=== PATIENT | male | born 1960 | race African-American/Black ===

== ENCOUNTER 2021-08-14 07:49 | Inpatient (IN) ==
[2021-08-14] MEDS ORDERED: SODIUM CHLORIDE 0.9% 1,000 ML IV STA ×2 (08:00→09:25)
[2021-08-14] MEDS ORDERED: NOREPINEPHRINE 4 MG/4 ML VIAL IV ONE ×3 (08:14→12:48)
[2021-08-14] MEDS: NOREPINEPHRINE 8 MG in SODIUM CHLORIDE 0.9% 242 ML IV PRN ×5 (08:18→14:46)
[2021-08-14] MEDS ORDERED: ROCURONIUM 100 MG/10 ML VIAL IV ONE (08:27)
[2021-08-14] MEDS ORDERED: ETOMIDATE 20 MG/10 ML VIAL IV ONE (08:27)
[2021-08-14 08:28] LABS: Basophils % 0.1 % (0.0-0.8); Eosinophils % 0.1 % (0.00-10.9); Hematocrit 29.5 VOL% (42.0-52.0); Immature Granulocytes % 5.6 %; Immature Granulocytes Absolute 0.71 #; Lymphocytes # 0.6 10*3/uL (1.4-4.0); Lymphocytes % 4.4 % (21.2-54.2); Mean Corpuscular HGB Conc 26.4 GM/DL (32-36); Mean Corpuscular Volume 98.7 FL (87-102); Mean Platelet Volume 10.8 FL (9.6-12.0); Monocytes % 3.6 % (1.7-12.7); NRBC # 0.74 10*3/uL; Neutrophils % 86.2 % (38.7-73.9); Platelet Count 278 T/CUMM (130-400); Red Blood Count 2.99 MC/CUMM (3.8-5.5); Red Cell Distribution Width 20.9 % (9.3-17.3); White Blood Count 12.7 T/CUMM (4-12)
[2021-08-14] MEDS ORDERED: MIDAZOLAM 2 MG/2 ML VIAL ONE ×2 (08:28→09:01)
[2021-08-14 08:29] LABS: Hemoglobin 7.8 GM/DL (14.0-18.0)
[2021-08-14 08:31] LABS: ABG Base Excess -21.5 MMOL/L (-2.5-2.5); ABG HCO3 11.1 MMOL/L (20-26); ABG Oxygen Saturation 99.3 % (95-100); ABG PCO2 66.7 MM HG (35-48); ABG PO2 384.9 MM HG (80-95); ABG TCO2 13.2 MMOL/L (23-27)
[2021-08-14 08:34] LABS: ABG PH 6.841 (7.35-7.45)
[2021-08-14 08:34] LABS: Band Neutrophils 6 % (0-10); Hypochromia Slight; Lymphocytes 6 % (20-55); Microcytosis 1+; Nucleated Red Blood Cells 8 (0-5); Platelet Estimate Adequate; Segmented Neutrophils 83 % (50-85); Total Cells Counted 100
[2021-08-14 08:56] LABS: Alanine Aminotransferase 22 U/L (16-61); Albumin 2.4 G/DL (3.4-5.0); Alkaline Phosphatase 205 U/L (45-117); Aspartate Amino Transferase 38 U/L (0-37); Blood Urea Nitrogen 32 MG/DL (7-18); Calcium 12.8 MG/DL (8.5-10.1); Carbon Dioxide 14 MMOL/L (21-32); Estimated Glom Filtration Rate 37 ML/MIN; Osmolality,Calculated 334.6 MOS/KG (273-304); Potassium 3.6 MMOL/L (3.5-5.1); Sodium 153 MMOL/L (136-145); Total Protein 6.1 G/DL (6.4-8.2)
[2021-08-14 08:57] LABS: Glucose 548 MG/DL (74-106)
[2021-08-14] MEDS ORDERED: SODIUM BICARB INJ 50 MEQ in DEXTROSE 5% NACL 0.45% 1,000 ML IV SCH (09:00)
[2021-08-14] MEDS ORDERED: MIDAZOLAM 100 MG in SODIUM CHLORIDE 0.9% 80 ML IV PRN ×2 (09:00→09:27)
[2021-08-14 09:09] LABS: Bilirubin,Urine Negative (Negative); Blood, Urine Negative (Negative); Glucose,Urine (UA) >=500 mg/dL (Negative); Ketones,Urine 80 mg/dL (Negative); Nitrite,Urine Negative (Negative); Protein,Urine 30 MG/DL; RBC,Urine <1 /HPF (0-4); Squamous Epithelial Cell,Urine Occasional /HPF (0-10); Urine Appearance CLEAR (Clear); Urine Color Yellow (Yellow); Urine Specific Gravity 1.025 (1.001-1.035); Urine Urobilinogen < 2.0 EU/DL (<2.0)
[2021-08-14] MEDS ORDERED: ALBUTEROL 2.5 MG/3 ML NEB RESP TX PRN (09:20)
[2021-08-14] MEDS ORDERED: ONDANSETRON 4 MG/2 ML VIAL IV PRN (09:20)
[2021-08-14 09:24] LABS: Barbiturates Screen,Urine Negative (Negative); Benzodiazepines Screen,Urine Negative (Negative); Cannabinoid Screen,Urine Negative (Negative); Opiate Screen,Urine Negative (Negative); Phencyclidine Screen,Urine Negative (Negative)
[2021-08-14] MEDS ORDERED: MIDAZOLAM 2 MG/2 ML VIAL IV STA ×2 (09:26→09:28)
[2021-08-14] MEDS ORDERED: SODIUM BICARBONATE 50 MEQ/50 ML VIAL IV STA ×2 (09:27→13:56)
[2021-08-14] MEDS ORDERED: PANTOPRAZOLE 40 MG VIAL IV SCH (09:30)
[2021-08-14] MEDS ORDERED: INSULIN LISPRO 100 UNIT/ML SUBCUT STA (09:31)
[2021-08-14] MEDS ORDERED: SODIUM BICARBONATE 50 MEQ/50 ML SYRINGE IV ONE (09:44)
[2021-08-14] MEDS ORDERED: LACTATED RINGERS 1,000 ML IV ONE (10:44)
[2021-08-14 11:08] LABS: Allen Test Positive; Pt O2 Delivery Device Ventilator
[2021-08-14 11:09] LABS: ABG Base Excess -15.4 MMOL/L (-2.5-2.5); ABG HCO3 13.6 MMOL/L (20-26); ABG Oxygen Saturation 95.1 % (95-100); ABG PCO2 48.3 MM HG (35-48); ABG PO2 108.5 MM HG (80-95); ABG TCO2 15.1 MMOL/L (23-27)
[2021-08-14 11:10] LABS: ABG PH 7.069 (7.35-7.45)
[2021-08-14 17:37] VITALS: BP 62/42
== END 2021-08-14 15:42 | disposition expired | DRG 196 ==
LOC: EDBD → N.ED 07:49 → MERGE 07:49 → N.EDINP 09:20
PROVIDERS: ADMIT Internal Medicine; ATTEND Internal Medicine